=== PATIENT | female | born 1935 | race Caucasian/White ===

== ENCOUNTER 2016-09-10 21:46 | Emergency (ER) | payer MEDICARE ==
[2016-09-10] MEDS ORDERED: IBUPROFEN 600 MG TABLET ONE (23:09)
[2016-09-10] MEDS ORDERED: IBUPROFEN 600 MG TABLET PO ONE (23:09)
--- OUTSIDE RECORDS SUMMARY | 2016-09-10 23:17 | XMS REPORT | Continuity of Care Document ---
:1935 Author Organization [facility] ([facility]) Address [address] [place] [address] Phone [phone] Care Team Providers Name Role Phone Johanny Kleinforrest Primary Care Provider [phone] Source Comments This disclosure is being made pursuant to the Care Everywhere program, applicable federal and state laws, and may not contain all informaitonavailable regarding this patient.[facility] ([facility]) Active Allergies and Adverse Reactions No Known Allergies Current Medications Prescription Sig. Disp. Refills Start Date End Date Status LISINOPRIL PO Take by mouth. Active aspirin 81 mg tablet Take 81 mg by mouth Active daily. SIMVASTATIN PO Take by mouth Active daily. ZOLPIDEM TARTRATE Take by mouth at Active (ZOLPIDEM PO) bedtime. multivitamin tablet Take 1 Tab by mouth Active daily. glimepiride PO Take by mouth. Active DEXTRAN 70/HYPROMELLOSE Instill onto the Active (ARTIFICIAL TEARS OPHTH) eye as needed. metFORMIN PO Take by mouth. Active citalopram 20 mg tablet Take 20 mg by mouth Active at bedtime. losartan 50 mg tablet Take 50 mg by mouth Active daily. levothyroxine 25 mcg Take 25 mcg by Active tablet mouth every morning before breakfast. Active Problems Problem Noted Date Pseudophakia 08/12/2013 Type II or unspecified type diabetes mellitus without mention of 08/27/2009 complication, not stated as uncontrolled Glaucoma suspect 08/27/2009 Resolved Problems Problem Noted Date Resolved Date Nuclear sclerosis 08/27/2009 08/19/2013 Social History Tobacco Use Types Packs/Day Years Used Date Never Smoker Alcohol Use Drinks/Week oz/Week Comments Yes rare Last Filed Vital Signs Vital Sign Reading Time Taken Blood Pressure 147/65 08/20/2013 11:52 AM CDT Pulse 64 08/20/2013 11:46 AM CDT Temperature 36.2 C (97.2 F) 08/20/2013 10:32 AM CDT Respiratory Rate 18 08/20/2013 11:52 AM CDT Height 1.626 m (5' 4.02") 07/10/2013 2:30 PM [employer] Weight 76.8 kg (169 lb 5 oz) 08/20/2013 10:32 AM CDT Body Mass Index 29.05 08/20/2013 10:32 AM CDT Oxygen Saturation 98% 08/20/2013 11:52 AM CDT Plan of Care Health Maintenance Due Date Last Done Comments Hepatitis B Vaccine (1 of 3 - 1935 Primary Series) Tdap Vaccine 1944 DIABETIC: Cholesterol 1951 Diabetic: Hdl 1953 DIABETIC: Hemoglobin A1C 1951 Diabetic: Ldl 1953 DIABETIC: Microalbumin 1953 DIABETIC: Triglycerides 1953 Td Vaccine 1953 Colonoscopy 1983 Zoster Vaccine 1993 Osteoporosis Screening (DXA 1998 Bone Density) Pneumococcal Vaccine (1 of 2 1998 - PCV13) DIABETIC: Foot Exam 10/19/2010 DIABETIC: Retinal Eye Exam 12/28/2013 12/28/2012, Additional history exists 12/28/2012, 12/29/2011 Influenza Vaccine: Seasonal 12/07/2015 (#1) Results from Last 3 Months Not on file
--- NOTE | 2016-09-10 23:49 | ERNOTE ---
Medical Problem HPI - General Chief Complaint: General Assessment Time Seen by Provider: 09/10/16 22:50 Source: patient Exam Limitations: no limitations - Immun/Allergies/Home Medications Immunizations: IMMUNIZATION HX Immunizations Up to Date Yes History of Influenza Vaccine No Hx Pneumococcal Vaccination Yes Allergies/Adverse Reactions: Allergies No Known Allergies Allergy (Verified 09/10/16 22:45) Home Medications: HOME MEDICATIONS Citalopram HBr 06/28/15 [Last Taken Unknown] Glimepiride 06/28/15 [Last Taken Unknown] Levothyroxine Sodium 06/28/15 [Last Taken Unknown] Losartan Potassium 06/28/15 [Last Taken Unknown] Metformin HCl 06/28/15 [Last Taken Unknown] Phenazopyridine HCl [Pyridium] 200 mg PO TID #30 tablet 06/28/15 [Last Taken Unknown] Sulfamethoxazole/Trimethoprim [Bactrim Ds] 1 tab PO BID #20 tab 06/28/15 [Last Taken Unknown] Ibuprofen 600 mg PO TID PRN 7 Days 09/10/16 [Last Taken Unknown] Penicillin V Potassium [Pen-Vee K] 250 mg PO QID #40 tablet 09/10/16 [Last Taken Unknown] - History of Present History Narrative: pt complains of sore throat which began tonight earlier. Has taken no meds Review of Systems - Review of Systems Constitutional: Present: no symptoms reported EYE: Present: no symptoms reported ENT: Present: See HPI Respiratory: Present: no symptoms reported Cardiology: Present: no symptoms reported Gastrointestinal/Abdominal: Present: no symptoms reported Genitourinary: Present: no symptoms reported - Patient's Past Medical History Patient History - Medical: Diabetes Type 2 Patient History - Cardiac/Respiratory: Hypertension, Hyperlipidemia Patient History - Cancer: No Hx of Cancer Patient History - Surgical Procedures: Cataracts Patient History - Other: None - Family History Mother Family History - Medical: , Diabetes Type 2 Father Family History - Medical: Family History - Cardiac/Respiratory: CVA/Stroke - Social History Living Situations: alone Abuse History: No History of abuse Psych History: No pertinent hx Smoking Status: Never smoker Alcohol Use: none Drug Use: none - Immunizations Immunizations Up to Date: Yes Hx Pneumococcal Vaccination: Yes History of Influenza Vaccine: No Physical Exam - Physical Exam General Appearance: Present: wd/wn, alert, no apparent distress Ears, Nose, Throat: Present: normal ENT inspection, other - slight injection of the right tonsillar pillar noted but no exudates noted, mild right submandibular lymphadenopathy noted on exam and area is tender Neck: Present: normal inspection, lymphadenopathy (L) Respiratory: Present: no respiratory distress, normal breath sounds, no accessory muscle use Cardiovascular/Chest: Present: regular rate, rhythm, no murmur, normal peripheral pulses Gastrointestinal/Abdominal: Present: normal bowel sounds, nontender, nondistended, soft, no organomegaly Neurological Exam: Present: alert, oriented, normal mood/affect, no motor/ sensory deficits ED Progress - Results and Orders Patient's Lab Results:: I have reviewed the patient's lab results. - Vital Signs Patient's Vital Signs:: I have reviewed the patient's vital signs. Vital Signs: Vital Signs 09/10/16 22:38 Temperature 37.9 C H Pulse Rate 80 Respiratory 16 Rate Blood Pressure 188/88 O2 Sat by Pulse 100 Oximetry - Progress/Reassessment Chief Complaint: General Assessment Departure - Departure Clinical Impression: Pharyngitis Qualifiers: Pharyngitis/tonsillitis etiology: unspecified etiology Qualified Code(s): J02.9 - Acute pharyngitis, unspecified Disposition: Home self-care Condition: Good Instructions: Dysphagia Referrals: Debo Klein MD [Primary Care Provider] - Prescriptions: Ibuprofen 600 mg PO TID PRN 7 Days PRN Reason: Pain Penicillin V Potassium [Pen-Vee K] 250 mg PO QID #40 tablet
[2016-09-10 23:55] VITALS: BP 178/84
== END 2016-09-10 23:54 | disposition home or self-care (01) ==
LOC: ER 21:46
DX: J02.9 Acute pharyngitis, unspecified (principal)

== ENCOUNTER 2017-03-19 08:53 | Emergency (ER) | payer MEDICARE ==
[2017-03-19 09:01] VITALS: BP 144/71
[2017-03-19 09:13] LABS: Urine Bilirubin Negative (NEGATIVE); Urine Blood 250 /ul (NEGATIVE); Urine Ketone 5 mg/dL (NEGATIVE); Urine Protein 100 mg/dL (NEGATIVE); Urine Specific Gravity 1.025 SP.GR. (1.005-1.010); Urine Urobilinogen Normal (NORMAL); Urine pH 5.5 pH (5.0-7.0)
[2017-03-19 09:25] LABS: Urine Appearance Cloudy; Urine Bacteria 2+; Urine Color Yellow; Urine Nitrite Positive (NEGATIVE); Urine RBC >50 /hpf (0-5); Urine WBC >50 /hpf (0-5)
--- NOTE | 2017-03-19 09:27 | ERNOTE ---
ER Female HPI Stated Complaint: BLADDER INFECTION Presenting Symptoms: dysuria Time Seen by Provider: 03/19/17 09:05 Source: patient Exam Limitations: no limitations Immunizations: IMMUNIZATION HX Immunizations Up to Date Yes History of Influenza Vaccine No Hx Pneumococcal Vaccination Yes Allergies/Adverse Reactions: Allergies No Known Allergies Allergy (Verified 03/19/17 09:00) Home Medications: HOME MEDICATIONS Citalopram HBr 40 mg PO DAILY 06/28/15 [Last Taken Unknown] Glimepiride 2 mg PO DAILY 06/28/15 [Last Taken Unknown] Levothyroxine Sodium 25 mcg PO DAILY 06/28/15 [Last Taken Unknown] Losartan Potassium 50 mg PO TID 06/28/15 [Last Taken Unknown] Metformin HCl 850 mg PO TID 06/28/15 [Last Taken Unknown] ALPRAZolam [Xanax] 0.25 mg PO TID PRN 03/19/17 [Last Taken Unknown] Atorvastatin Calcium [Lipitor] 40 mg PO HS 03/19/17 [Last Taken Unknown] Benzonatate [Tessalon] 100 mg PO TID PRN 03/19/17 [Last Taken Unknown] Sulfamethoxazole/Trimethoprim [Bactrim Ds] 1 tab PO BID #20 tab 03/19/17 [Last Taken Unknown] rOPINIRole HCL [Requip] 0.5 mg PO DAILY 03/19/17 [Last Taken Unknown] - History of Present Illness Narrative: Patient presents with a sensation of bladder fullness as well as burning on urination. Onset of symptoms was 2-3 days ago and she describes it as moderate in severity. Timing: Present: getting worse Quality: Present: moderate, burning, fullness Onset Location: Present: suprapubic Radiation: Present: none Activities at Onset: Present: none Prior Abdominal Problems: Present: similar symptoms - in the past with a UTI Sexual [place] History: Present: not active Modifying Factors - (Worsens): Present: urinating Associated Symptoms: Present: denies symptoms Review of Systems - Review of Systems Constitutional: Present: See HPI EYE: Present: no symptoms reported ENT: Present: no symptoms reported Respiratory: Present: no symptoms reported Cardiology: Present: no symptoms reported Gastrointestinal/Abdominal: Present: no symptoms reported Genitourinary: Present: See HPI Musculoskeletal: Present: no symptoms reported Skin: Present: no symptoms reported Neurological: Present: no symptoms reported Endocrine: Present: no symptoms reported Hematologic/Lymphatic: Present: no symptoms reported Psych: Present: no symptoms reported - Patient's Past Medical History Patient History - Medical: Diabetes Type 2 Patient History - Cardiac/Respiratory: Hypertension, Hyperlipidemia Patient History - Cancer: No Hx of Cancer Patient History - Surgical Procedures: Cataracts Patient History - Other: None - Family History Mother Family History - Medical: , Diabetes Type 2 Father Family History - Medical: Family History - Cardiac/Respiratory: CVA/Stroke - Social History Living Situations: home Abuse History: No History of abuse Psych History: No pertinent hx Alcohol Use: none Drug Use: none - Immunizations Immunizations Up to Date: Yes Hx Pneumococcal Vaccination: Yes History of Influenza Vaccine: No Physical Exam - Physical Exam General Appearance: Present: wd/wn, alert, moderate distress Head Exam: Present: normal inspection Eye Exam: Normal inspection: bilateral, PERRL: bilateral Ears, Nose, Throat: Present: normal ENT inspection, H, normal pharynx Neck: Present: normal inspection, nontender Respiratory: Present: no respiratory distress, normal breath sounds, no accessory muscle use, chest nontender, lungs clear Cardiovascular/Chest: Present: regular rate, rhythm, no murmur, normal peripheral pulses Gastrointestinal/Abdominal: Present: normal bowel sounds, nondistended, soft, no organomegaly, tenderness - suprapubic Rectal Exam: Present: deferred Back Exam: Present: normal inspection, normal range of motion Extremity Exam: Present: normal inspection, non-tender, no edema, normal range of motion Neurological Exam: Present: alert, oriented, normal mood/affect Skin Exam: Present: normal color, warm/dry Lymphatic Exam: Present: no adenopathy ED Progress - Results and Orders Patient's Lab Results:: I have reviewed the patient's lab results. - Vital Signs Patient's Vital Signs:: I have reviewed the patient's vital signs. Vital Signs: Vital Signs 03/19/17 08:57 Temperature 36.4 C L Pulse Rate 87 Respiratory 16 Rate Blood Pressure 144/71 O2 Sat by Pulse 98 Oximetry - Progress/Reassessment Chief Complaint: Genitourinary Problem Plan - Plan Plan: Upon perusal of previous urine cultures patient has always been susceptible to Bactrim as an antibiotic agent. If she is diabetic and does appear to have some very mild renal insufficiency I will start with Bactrim rather than Cipro and have her follow-up with her family physician in the event that the Bactrim is not sufficient to clear up the UTI. She agrees to call her family physician for appointment Departure Clinical Impression: UTI (urinary tract infection) Qualifiers: Urinary tract infection type: acute cystitis Hematuria presence: with hematuria Qualified Code(s): N30.01 - Acute cystitis with hematuria - Departure Disposition: Home self-care Condition: Good Instructions: Urinary Tract Infection, Adult, [id number] Referrals: Debo Klein MD [Primary Care Provider] - Prescriptions: Sulfamethoxazole/Trimethoprim [Bactrim Ds] 1 tab PO BID #20 tab
== END 2017-03-19 09:41 | disposition home or self-care (01) ==
LOC: ER 08:53
DX: N30.01 Acute cystitis with hematuria (principal); E11.9 Type 2 diabetes mellitus without complications; I10 Essential (primary) hypertension; E78.5 Hyperlipidemia, unspecified

== ENCOUNTER 2018-02-22 15:38 | Observation (INO) ==
[2018-02-22] MEDS ORDERED: MECLIZINE HCL 25 MG TABLET PO ONE (16:17)
[2018-02-22] MEDS ORDERED: MECLIZINE HCL 25 MG TABLET ONE (16:23)
[2018-02-22 16:37] LABS: Hematocrit 35.3 % (37.0-47.0); Hemoglobin 11.7 gm/dL (12.5-16.0); Mean Cell Volume 90.3 fl (78-100); Mean Corpuscular Hemoglobin 29.9 pg (27-31); Mean Corpuscular Hgb Conc 33.1 g/dl (32-36); Mean Platelet Volume 10.5 fl (8-12.5); Neutrophil # 3.4 K/mm3 (1.3-6.0); Neutrophil % 65.5 % (42-75.0); Platelet Count 132 K/mm3 (150-450); Red Blood Count 3.91 M/mm3 (4.2-5.4); Red Cell Distribution Width 13.3 % (11.5-14.0); White Blood Count 5.2 K/mm3 (4.0-10.5)
[2018-02-22 16:50] LABS: Albumin * 3.6 gm/dl (3.4-5.0); BUN/Creatinine Ratio 23.1 (9.0-21.6); Bilirubin, Total 0.3 mg/dL (0.0-1.1); Carbon Dioxide 26.9 mmol/L (24-32.6); Potassium 4.9 mmol/L (3.4-4.6); Total Protein 6.6 gm/dL (6.2-8.2)
[2018-02-22 16:52] LABS: Urine Bilirubin Negative (NEGATIVE); Urine Blood Negative /ul (NEGATIVE); Urine Ketone Negative (NEGATIVE); Urine Nitrite Negative (NEGATIVE); Urine Protein Negative (NEGATIVE); Urine Urobilinogen Normal (NORMAL)
[2018-02-22 17:02] LABS: Urine Appearance Clear (CLEAR); Urine Bacteria None Seen; Urine Color Yellow; Urine RBC TRACE /hpf (0-5); Urine WBC TRACE /hpf (0-5)
[2018-02-22] MEDS ORDERED: hydrALAZINE HCL 20 MG/ML VIAL IV ONE (17:21)
[2018-02-22] MEDS ORDERED: hydrALAZINE HCL 20 MG/ML VIAL ONE (17:23)
[2018-02-22] MEDS ORDERED: LABETALOL HCL 5 MG/ML VIAL IV ONE ×2 (18:21→18:24)
--- NOTE | 2018-02-22 18:46 | ERNOTE ---
Dizziness ER Record Date of Service: 02/22/18 Presenting Symptoms: dizziness Time Seen by Provider: 02/22/18 16:01 Source: patient, family, RN notes reviewed, old records Exam Limitations: no limitations Immunizations: IMMUNIZATION HX Immunizations Up to Date Yes History of Influenza Vaccine No Hx Pneumococcal Vaccination Yes Allergies/Adverse Reactions: Allergies Allergy/AdvReac Type Severity Reaction Status Date / Time No Known Allergies Allergy Verified 02/22/18 15:50 Home Medications: HOME MEDICATIONS blood sugar diagnostic strips See Dose Instructions .ROUTE .MEDSUPPLY #100 ea 11/29/17 [Last Taken Unknown] blood-glucose meter See Dose Instructions .ROUTE .MEDSUPPLY #1 ea 11/29/17 [Last Taken Unknown] lancets See Dose Instructions .ROUTE .MEDSUPPLY #204 ea 11/29/17 [Last Taken Unknown] aspirin 81 mg chewable tablet 81 mg PO DAILY 12/06/17 [Last Taken Unknown] aspirin-acetaminophen (buffered) 250 mg-250 mg tablet tab PO .PRN tab 12/06/17 [Last Taken Unknown] atorvastatin 40 mg tablet 40 mg PO HS 12/06/17 [Last Taken Unknown] glimepiride 2 mg tablet 2 mg PO QAM 12/06/17 [Last Taken Unknown] hydrocodone 5 mg-acetaminophen 325 mg tablet 1 tab PO Q6H PRN 12/06/17 [Last Taken Unknown] levothyroxine 25 mcg capsule 25 mcg PO DAILY 12/06/17 [Last Taken Unknown] losartan 50 mg tablet 100 mg PO DAILY #60 tab 12/06/17 [Last Taken Unknown] ondansetron HCl 8 mg tablet 8 mg PO TID PRN 12/06/17 [Last Taken Unknown] sodium polystyrene sulfonate 15 gram/60 mL oral suspension 60 ml PO DAILY 12/06/17 [Last Taken Unknown] alprazolam 0.25 mg tablet 0.25 mg PO TID PRN #90 tab 01/23/18 [Last Taken Unknown] ropinirole 1 mg tablet 1 mg PO HS #90 tab 01/31/18 [Last Taken Unknown] citalopram 40 mg tablet 40 mg PO HS #90 tab 02/15/18 [Last Taken Unknown] - History of Present Illness Narrative: Jillian is a 82 year old female brought to the ED from home by her daughter for dizziness and nausea that began earlier today. Her blood pressure has also been elevated in the 180's systolic. The dizziness does not seem to be related to activity or rest. She saw her PCP approximately 3 weeks ago. Her blood pressure was elevated at that time. Her losartan was increased and has been controlling her blood pressure well. Date (Duration): 02/22/18 Timing and Duration: sudden onset Noted on awakening:: No Severity: max: moderate Severity: currently: mild Associated Symptoms: Present: hearing loss - Chronic, nausea, light headedness. Absent: ringing/roaring in ear, ear pain, vomiting, headache, weakness, numbness, sweating, sense of confusion Sense of movement: Present: spinning, vague Decreased ability to stand/walk:: Present: walks w/o assistance Usually:: Present: walks w/o assistance Prior Treament: Reports: recently seen. Denies: similar symptoms before Review of Systems - Review of Systems Constitutional: Present: malaise. Absent: recent illness, fever, chills EYE: Absent: eye pain, vision changes ENT: Present: See HPI. Absent: nose congestion, sore throat Respiratory: Absent: shortness of breath, cough Cardiology: Absent: chest pain, palpitations, syncope Gastrointestinal/Abdominal: Present: See HPI. Absent: diarrhea, abdominal pain Genitourinary: Present: no symptoms reported Musculoskeletal: Present: muscle pain, neck pain. Absent: joint pain Skin: Absent: rash, lesions Neurological: Present: dizziness/light-headedness. Absent: headache Endocrine: Present: no symptoms reported Hematologic/Lymphatic: Absent: easy bruising, easy bleeding Psych: Absent: anxiety, depressed Medical History (Last Reviewed 02/22/18 @ 18:44 by Yumiko Lopez NP) Sciatica (Chronic) Onset Date: ~01/28/13 Post traumatic stress disorder (Chronic) Onset Date: ~06/06/07 Migraine (Chronic) Onset Date: ~03/23/12 consider propranolol again which may help anxiety as well, though may try alpha yudelka first. propranolol and Elavil helped in past but caused weight gain. Insomnia (Chronic) Onset Date: ~07/07/11 Hypothyroidism (Chronic) Onset Date: ~10/25/12 mixed, low FT4 and TSH, consider endocrinology consult Hypertension (Chronic) Onset Date: ~07/07/11 Hyperlipidemia (Chronic) Onset Date: ~06/06/07 Hip pain (Chronic) Onset Date: ~01/28/13 Diabetes 1.5, managed as type 2 (Chronic) Onset Date: ~07/07/11 Depression (Chronic) Onset Date: ~07/07/11 Chronic renal failure (Chronic) Onset Date: ~01/28/13 Stage II Anxiety (Chronic) Onset Date: ~07/07/11 Anemia (Chronic) Onset Date: ~01/28/13 appears chronic in nature based on labs Surgical History: Surgical History (Last Reviewed 02/22/18 @ 18:44 by Yumiko Lopez NP) Cataract (Resolved) Onset Date: ~08/2013 bilateral Family History: Family History (Last Reviewed 02/22/18 @ 18:44 by Yumiko Lopez NP) Father , age 72 CVA (cerebral vascular accident) Mother , age 87 CHF (congestive heart failure) Social History: Preferred Language Syriac Smoking Status Never smoker Abuse History No History of abuse Psych History No pertinent hx Alcohol Use rarely Drug Use none (Last Updated 02/15/18 @ 07:26 by Debo Klein MD) No Social History Section defined Physical Exam - Physical Exam General Appearance: Present: wd/wn, alert, no apparent distress Head Exam: Present: normal inspection, no evidence of injury Eye Exam: Normal inspection: bilateral, PERRL: bilateral, EOMI: bilateral Ears, Nose, Throat: Present: hearing decreased - Wears hearing aids, normal pharynx. Absent: abnormal TM (R), abnormal TM (L), nasal congestion Neck: Present: supple, full range of motion, other - diffuse tenderness in posterior neck Respiratory: Present: no respiratory distress, normal breath sounds, no accessory muscle use, lungs clear Cardiovascular/Chest: Present: regular rate, rhythm, no murmur, normal peripheral pulses Gastrointestinal/Abdominal: Present: nontender, nondistended, soft Extremity Exam: Present: normal inspection, non-tender, normal range of motion, no edema Neurological Exam: Present: alert, oriented, normal mood/affect, no motor/sensory deficits, other - negative Bude/Brown/Stratford test Skin Exam: Present: normal color, warm/dry ED Progress - Results and Orders Patient's Lab Results:: I have reviewed the patient's lab results. - Vital Signs Patient's Vital Signs:: I have reviewed the patient's vital signs. Vital Signs: Vital Signs 02/22/18 15:38 02/22/18 16:09 02/22/18 16:27 Temperature 36.5 C Pulse Rate 72 68 75 Respiratory Rate 14 18 Blood Pressure 202/104 H 185/80 H O2 Sat by Pulse Oximetry 100 100 02/22/18 16:28 02/22/18 16:43 02/22/18 17:09 Temperature Pulse Rate 66 67 68 Respiratory Rate 17 15 10 L Blood Pressure 189/85 H 217/84 H 195/84 H O2 Sat by Pulse Oximetry 98 100 100 02/22/18 17:24 02/22/18 17:41 02/22/18 18:26 Temperature Pulse Rate 66 67 78 Respiratory Rate 15 Blood Pressure 204/94 H 191/86 H 192/84 H O2 Sat by Pulse Oximetry 96 - EKG EKG: NSR EKG read: Reviewed by me - CT/Ultrasound CT/Ultrasound Narrative: Head CT shows no acute intracranial abnormality - Progress/Reassessment Chief Complaint: Dizziness Progress:: Unchanged Plan - Plan Plan: The patient continues to report dizziness. After having a negative Bude/Brown/Stratford, she was given Meclizine without any improvement. Her blood pressure continued to be elevated in the 180-200 systolic range. She was then given hydralazine without any change, and then labetolol without any significant improvement in her blood pressure. She continues to have dizziness that seems to be worse when she reclines. She also reports nausea and an abnormal feeling in her head that she will not describe as a headache. She does complain of neck pain, but this has apparently been an ongoing issue. Dr. Brito was contacted and the patient will be admitted to observation status for further monitoring and control of her blood pressure. Departure Clinical Impression: Uncontrolled hypertension - Departure Disposition: Still a patient Condition: Fair Referrals: Debo Klein MD [Primary Care Provider] -
[2018-02-22] MEDS ORDERED: amLODIPine BESYLATE 5 MG TABLET ONE (19:59)
[2018-02-22] MEDS ORDERED: METOPROLOL SUCCINATE 50 MG TABLET.SA PO ONE (20:00)
[2018-02-22] MEDS ORDERED: amLODIPine BESYLATE 10 MG TABLET PO SCH (20:00)
[2018-02-22] MEDS ORDERED: METOPROLOL SUCCINATE 25 MG TABLET.SA PO SCH (20:00)
[2018-02-22] MEDS ORDERED: hydrALAZINE HCL 20 MG/ML VIAL IV PRN (20:02)
[2018-02-22] MEDS ORDERED: ALPRAZolam 0.25 MG TABLET PO PRN (21:42)
[2018-02-22] MEDS ORDERED: ACETAMINOPHEN 325 MG TABLET PO PRN (21:46)
[2018-02-22] MEDS ORDERED: CITALOPRAM HYDROBROMIDE 20 MG TABLET PO SCH (22:00)
[2018-02-22] MEDS ORDERED: ROSUVASTATIN CALCIUM 20 MG TABLET PO SCH (22:00)
[2018-02-22] MEDS ORDERED: ROSUVASTATIN CALCIUM 10 MG TABLET ONE (22:09)
[2018-02-22] MEDS ORDERED: rOPINIRole HCL 1 MG TABLET ONE (22:10)
[2018-02-22] MEDS: HYDROcodone/ACETAMINOPHEN 1 EACH TABLET PO PRN (22:14)
[2018-02-23 05:38] LABS: Anion Gap 7.2 mmol/L (6.8-13.8); BUN/Creatinine Ratio 26.1 (9.0-21.6); Carbon Dioxide 28.2 mmol/L (24-32.6); Estimated Creat Clear 32.6; Potassium 4.4 mmol/L (3.4-4.6)
[2018-02-23] MEDS: HYDROcodone/ACETAMINOPHEN 1 EACH TABLET PO PRN ×2 (06:34→12:50)
[2018-02-23] MEDS ORDERED: LEVOTHYROXINE SODIUM 25 MCG TABLET PO SCH (07:00)
[2018-02-23] MEDS ORDERED: PANTOPRAZOLE SODIUM 20 MG TABLET.DR PO SCH (07:00)
[2018-02-23] MEDS ORDERED: LOSARTAN POTASSIUM 50 MG TABLET PO SCH (09:00)
[2018-02-23] MEDS ORDERED: METOPROLOL SUCCINATE 25 MG TABLET.SA PO SCH (09:00)
[2018-02-23] MEDS ORDERED: ASPIRIN 81 MG TAB.CHEW PO SCH (09:00)
--- NOTE | 2018-02-23 11:35 | DS ---
(1) Hypertensive urgency Problem: Acute (2) Uncontrolled hypertension Problem: Acute Description of Stay: ADMISSION DATE: 02/22/2018 DISCHARGE DATE: 02/23/2018 ADMISSION HPI: The patient presented to the ED after experiencing dizziness and a queasy feeling in her stomach yesterday (02/21/2018) AM. She was found to be quite hypertensive in the ED so she was admitted overnight to outpatient observation for further monitoring. On admission, I started her on amlodipine 10mg PO X 1 on admission and then a second dose again this morning and then daily. This AM, the patient's blood pressure is improved and she denies any dizziness or nausea. She states she feels back to her baseline. HOSPITAL COURSE: The patient was admitted to outpatient observation for hypertension urgency and she was monitored overnight. She was started on amlodipine at admission which will be continued at discharge. She had a good response in BP with resolution of her presenting symptoms and she was discharged home in stable condition. She was instructed to follow-up within 1 week for a BP check. FOLLOW-UP APPOINTMENTS: -Follow-up with PCP within [address] Klein is unable to see the patient for follow-up next week, that is fine but please schedule the patient for a nurse visit with one of his nurses for a BP check and BMP. NEW OR CHANGED MEDICATIONS: -Amlodipine 10mg PO daily DISCONTINUED MEDICATIONS: -None RADIOLOGY REPORTS: Head CT without contrast on 02/22/2018: Findings: Exam shows symmetric appearing ventricular system and cortical sulci. There are scattered white matter low densities compatible with white matter microvascular ischemic disease. This includes remote lacunar infarcts in the basal ganglia regions. There is no positive mass effect or midline shift. There is no evidence for intracranial hemorrhage. There are no focal abnormal hypodensities to suggest vascular territory infarct. Follow-up with head MRI as clinically indicated. Visualized paranasal sinuses and mastoid air cells appear adequately aerated. IMPRESSION: NO ACUTE INTRACRANIAL PATHOLOGY IDENTIFIED. MILD AGE RELATED WHITE MATTER MICROVASCULAR ISCHEMIC CHANGES INCLUDING REMOTE APPEARING BASAL GANGLIA LACUNAR INFARCTS. Procedures Performed: none Results and Findings: Lab Pending Results 02/22/18 16:20: WBC 5.2, RBC 3.91 L, Hgb 11.7 L, Hct 35.3 L, MCV 90.3, MCH 29.9, MCHC 33.1, RDW 13.3, Plt Count 132 L, MPV 10.5, Immature Gran % (Auto) 0.40, Immature Gran # (Auto) 0.02, Neutrophils % 65.5, Lymphocytes % 25.2, Monocytes % 7.1, Eosinophils % 1.0, Basophils % 0.8, Nucleated RBC % 0.0, Neutrophils # 3.4, Lymphocytes # 1.31 L, Monocytes # 0.4, Eosinophils # 0.1, Absolute Basophils 0.0 02/22/18 16:20: Sodium 138, Plasma Sodium 138, Potassium 4.9 H, Chloride 107 H, Carbon Dioxide 26.9, Anion Gap 9.0, BUN 30 H, Creatinine 1.30, Est GFR (Non-Af Amer) 41 L D, BUN/Creatinine Ratio 23.1 H, Random Glucose 118 H, Calcium 9.0, Calcium Adj for Albumin 9.0, Total Bilirubin 0.3, AST 24, ALT 34, Alkaline Phosphatase 56, Total Protein 6.6, Albumin 3.6 02/22/18 16:47: Urine Color Yellow, Urine Appearance Clear, Urine pH 6.0, Ur Specific [place] 1.020, Urine Protein Negative, Urine Glucose (UA) Negative, Urine Ketones Negative, Urine Blood Negative, Urine Nitrate Negative, Urine Bilirubin Negative, Urine Urobilinogen Normal, Ur Leukocyte Esterase Negative, Urine RBC Trace, Urine WBC Trace H, Ur Epithelial Cells None seen, Urine Bacteria None seen, Urine Culture Comments No culture indicated 02/23/18 05:27: Sodium 139, Plasma Sodium 139, Potassium 4.4, Chloride 108 H, Carbon Dioxide 28.2, Anion Gap 7.2, BUN 29 H, Creatinine 1.11, Est GFR (Non-Af Amer) 50 L D, BUN/Creatinine Ratio 26.1 H, Random Glucose 106, Calcium 9.0 Discharge Location: Home Disposition: Home self-care Condition: Stable Discharge Activity: Activity as tolerated Discharge Diet: Low salt, Low fat/chol Referrals: Debo Klein MD [Primary Care Provider] - Problem Oriented Discharge Instructions to Patient/Family: Hypertension, [id number] Additional Patient Instructions (free text): -Please make TCM appointment unless longterm discharge. Thank you! Sakina @ ext:[phone]. -Follow-up with PCP within [address] Klein is unable to see the patient for follow-up next week, that is fine but please schedule the patient for a nurse visit with one of his nurses for a BP check and BMP. Follow up with Dr. Klein on 03/07/18 1:15pm. Prescriptions (Any new or edited meds): amLODIPine BESYLATE [Norvasc] 10 mg PO DAILY #30 tab Complete Home Medications List: Complete Home Medication List: blood sugar diagnostic strips See Dose Instructions .ROUTE .MEDSUPPLY #100 ea 11/29/17 blood-glucose meter See Dose Instructions .ROUTE .MEDSUPPLY #1 ea 11/29/17 lancets See Dose Instructions .ROUTE .MEDSUPPLY #204 ea 11/29/17 aspirin 81 mg chewable tablet 81 mg PO DAILY 12/06/17 losartan 50 mg tablet 100 mg PO DAILY #60 tab 12/06/17 alprazolam 0.25 mg tablet 0.25 mg PO TID PRN #90 tab 01/23/18 ropinirole 1 mg tablet 1 mg PO HS #90 tab 01/31/18 citalopram 40 mg tablet 40 mg PO HS #90 tab 02/15/18 amLODIPine BESYLATE [Norvasc] 10 mg PO DAILY #30 tab 02/23/18 levothyroxine 25 mcg capsule 25 mcg PO DAILY #180 cap 03/05/18 atorvastatin 40 mg tablet 40 mg PO HS #90 tab 03/07/18 hydrocodone 5 mg-acetaminophen 325 mg tablet 1 tab PO Q6H PRN #56 tab 03/07/18 oxycodone 10 mg tablet 10 mg PO BID #60 tab 03/07/18 glimepiride 2 mg tablet 2 mg PO DAILY tab 03/08/18
[2018-02-23 12:49] VITALS: BP 159/74
[2018-02-23] MEDS ORDERED: rOPINIRole HCL 1 MG TABLET PO SCH (21:00)
--- NOTE | 2018-03-11 19:48 | HP ---
Chief Complaint - Chief Complaint Date of Service: 02/23/18 Time of Service: 06:40 Chief Complaint: Dizziness, elevated BP History of Present Illness: The patient presented to the ED after experiencing dizziness and a queasy feeling in her stomach yesterday (02/21/2018) AM. She was found to be quite hypertensive in the ED so she was admitted overnight to outpatient observation for further monitoring. On admission, I started her on amlodipine 10mg PO X 1 on admission and then a second dose again this morning and then daily. This AM, the patient's blood pressure is improved and she denies any dizziness or nausea. She states she feels back to her baseline. Medical History (Last Reviewed 03/07/18 @ 13:19 by Judith Grossman RN) Sciatica (Chronic) Onset Date: ~01/28/13 Post traumatic stress disorder (Chronic) Onset Date: ~06/06/07 Migraine (Chronic) Onset Date: ~03/23/12 consider propranolol again which may help anxiety as well, though may try alpha yudelka first. propranolol and Elavil helped in past but caused weight gain. Insomnia (Chronic) Onset Date: ~07/07/11 Hypothyroidism (Chronic) Onset Date: ~10/25/12 mixed, low FT4 and TSH, consider endocrinology consult Hypertension (Chronic) Onset Date: ~07/07/11 Hyperlipidemia (Chronic) Onset Date: ~06/06/07 Hip pain (Chronic) Onset Date: ~01/28/13 Diabetes 1.5, managed as type 2 (Chronic) Onset Date: ~07/07/11 Depression (Chronic) Onset Date: ~07/07/11 Chronic renal failure (Chronic) Onset Date: ~01/28/13 Stage II Anxiety (Chronic) Onset Date: ~07/07/11 Anemia (Chronic) Onset Date: ~01/28/13 appears chronic in nature based on labs Degenerative disc disease Surgical History: Surgical History (Last Reviewed 03/07/18 @ 13:19 by Judith Grossman RN) Cataract (Resolved) Onset Date: ~08/2013 bilateral Family History: Family History (Last Reviewed 03/07/18 @ 13:19 by Judith Grossman RN) Father , age 72 CVA (cerebral vascular accident) Mother , age 87 CHF (congestive heart failure) Social History: Patient Lives/Resources Home Utilized Preferred Language Icelandic Do you have any hoahaoism or Yes: temple cultural preference? Smoking Status Never smoker Have you smoked in the past 12 No months Abuse History No History of abuse Psych History No pertinent hx Alcohol Use rarely Drug Use none (Last Reviewed 03/07/18 @ 13:19 by Judith Grossman RN) No Social History Section defined Review Of Systems (GEN) - Review of Systems Generalized/Overall Review: Present: No Symptoms Reported EENTM: Present: No Symptoms Reported Respiratory: Present: No Symptoms Reported Cardiac: Present: No Symptoms Reported Abdominal: Present: No Symptoms Reported Genitourinary: Present: No Symptoms Reported Musculoskeletal: Present: No Symptoms Reported Neurological: Present: No Symptoms Reported Skin: Present: No Symptoms Reported Endocrine: Present: No Symptoms Reported Misc: All systems neg except as marked Immunizations: IMMUNIZATION HX Immunizations Up to Date Yes History of Influenza Vaccine No Hx Pneumococcal Vaccination Yes Allergies/Adverse Reactions: Allergies Allergy/AdvReac Type Severity Reaction Status Date / Time No Known Allergies Allergy Verified 03/07/18 13:30 Home Medications: HOME MEDICATIONS blood sugar diagnostic strips See Dose Instructions .ROUTE .MEDSUPPLY #100 ea 11/29/17 [Last Taken Unknown] blood-glucose meter See Dose Instructions .ROUTE .MEDSUPPLY #1 ea 11/29/17 [Last Taken Unknown] lancets See Dose Instructions .ROUTE .MEDSUPPLY #204 ea 11/29/17 [Last Taken Unknown] aspirin 81 mg chewable tablet 81 mg PO DAILY 12/06/17 [Last Taken Unknown] losartan 50 mg tablet 100 mg PO DAILY #60 tab 12/06/17 [Last Taken Unknown] alprazolam 0.25 mg tablet 0.25 mg PO TID PRN #90 tab 01/23/18 [Last Taken Unknown] ropinirole 1 mg tablet 1 mg PO HS #90 tab 01/31/18 [Last Taken Unknown] citalopram 40 mg tablet 40 mg PO HS #90 tab 02/15/18 [Last Taken Unknown] amLODIPine BESYLATE [Norvasc] 10 mg PO DAILY #30 tab 02/23/18 [Last Taken Unknown] levothyroxine 25 mcg capsule 25 mcg PO DAILY #180 cap 03/05/18 [Last Taken Unknown] atorvastatin 40 mg tablet 40 mg PO HS #90 tab 03/07/18 [Last Taken Unknown] hydrocodone 5 mg-acetaminophen 325 mg tablet 1 tab PO Q6H PRN #56 tab 03/07/18 [Last Taken Unknown] oxycodone 10 mg tablet 10 mg PO BID #60 tab 03/07/18 [Last Taken Unknown] glimepiride 2 mg tablet 2 mg PO DAILY tab 03/08/18 [Last Taken Unknown] Exam - Exam Vital Signs: Vital Signs - Last Taken Temp 36.6 C 02/23/18 12:46 Pulse 67 02/23/18 12:46 Resp 16 02/23/18 12:46 BP 159/74 H 02/23/18 12:46 Pulse Ox 99 02/23/18 12:46 Constitutional: Present: Alert, Oriented x3, Cooperative, No distress, Elderly ENT Exam: Present: hard of hearing - bilateral hearing aids Neck: Present: normal inspection Respiratory: Present: lungs clear, normal breath sounds, no respiratory distress, no accessory muscle use Cardiovascular/Chest: Present: regular rate, rhythm Abdomen: Present: soft, nontender, nondistended Extremity: Present: normal inspection Skin Exam: Present: normal color, warm/dry Neurologic: Present: no motor/sensory deficits, alert, normal mood/affect, oriented x 3 Appearance: Present: appropriate appearance, appropriate insight, neat Eye contact: Present: cooperative, good eye contact, normal speech Thoughts: Present: normal thought pattern, no apparent hallucination Diagnostic Studies: Laboratory Results WBC 5.2 K/mm3 (4.0-10.5) 02/22/18 16:20 RBC 3.91 M/mm3 (4.2-5.4) L 02/22/18 16:20 Hgb 11.7 gm/dL (12.5-16.0) L 02/22/18 16:20 Hct 35.3 % (37.0-47.0) L 02/22/18 16:20 MCV 90.3 fl (78-100) 02/22/18 16:20 MCH 29.9 pg (27-31) 02/22/18 16:20 MCHC 33.1 g/dl (32-36) 02/22/18 16:20 RDW 13.3 % (11.5-14.0) 02/22/18 16:20 Plt Count 132 K/mm3 (150-450) L 02/22/18 16:20 MPV 10.5 fl (8-12.5) 02/22/18 16:20 Immature Gran % (Auto) 0.40 % (0.001-0.429) 02/22/18 16:20 Immature Gran # (Auto) 0.02 K/mm3 (0.000-0.0310) 02/22/18 16:20 Neutrophils % 65.5 % (42-75.0) 02/22/18 16:20 Lymphocytes % 25.2 % (20-51) 02/22/18 16:20 Monocytes % 7.1 % (0.0-9) 02/22/18 16:20 Eosinophils % 1.0 % (0.0-3.0) 02/22/18 16:20 Basophils % 0.8 % (0.0-1.0) 02/22/18 16:20 Nucleated RBC % 0.0 k/mm3 (0-1) 02/22/18 16:20 Neutrophils # 3.4 K/mm3 (1.3-6.0) 02/22/18 16:20 Lymphocytes # 1.31 k/mm3 (1.5-3.5) L 02/22/18 16:20 Monocytes # 0.4 k/mm3 (0.0-1.0) 02/22/18 16:20 Eosinophils # 0.1 k/mm3 (0.0-0.7) 02/22/18 16:20 Absolute Basophils 0.0 k/mm3 (0.0-0.1) 02/22/18 16:20 Sodium 139 mmol/L (132-142) 02/23/18 05:27 Plasma Sodium 139 mmol/L (130-142) 02/23/18 05:27 Potassium 4.4 mmol/L (3.4-4.6) 02/23/18 05:27 Chloride 108 mmol/L (97-106) H 02/23/18 05:27 Carbon Dioxide 28.2 mmol/L (24-32.6) 02/23/18 05:27 Anion Gap 7.2 mmol/L (6.8-13.8) 02/23/18 05:27 BUN 29 mg/dL (3-23) H 02/23/18 05:27 Creatinine 1.11 mg/dL (0.4-1.4) 02/23/18 05:27 Est GFR (Non-Af Amer) 50 mL/min (60-130) L D 02/23/18 05:27 BUN/Creatinine Ratio 26.1 (9.0-21.6) H 02/23/18 05:27 Random Glucose 106 mg/dL (70-110) 02/23/18 05:27 Calcium 9.0 mg/dL (7.9-10.9) 02/23/18 05:27 Calcium Adj for Albumin 9.0 mg/dL (8.4-10.2) 02/22/18 16:20 Total Bilirubin 0.3 mg/dL (0.0-1.1) 02/22/18 16:20 AST 24 U/L (0-48) 02/22/18 16:20 ALT 34 U/L (19-67) 02/22/18 16:20 Alkaline Phosphatase 56 U/L (50-170) 02/22/18 16:20 Total Protein 6.6 gm/dL (6.2-8.2) 02/22/18 16:20 Albumin 3.6 gm/dl (3.4-5.0) 02/22/18 16:20 Urine Color Yellow 02/22/18 16:47 Urine Appearance Clear (CLEAR) 02/22/18 16:47 Urine pH 6.0 pH (5.0-7.0) 02/22/18 16:47 Ur Specific [place] 1.020 SP.GR. (1.005-1.010) 02/22/18 16:47 Urine Protein Negative mg/dL (NEGATIVE) 02/22/18 16:47 Urine Glucose (UA) Negative mg/dL (NEGATIVE) 02/22/18 16:47 Urine Ketones Negative mg/dL (NEGATIVE) 02/22/18 16:47 Urine Blood Negative /ul (NEGATIVE) 02/22/18 16:47 Urine Nitrate Negative (NEGATIVE) 02/22/18 16:47 Urine Bilirubin Negative mg/dl (NEGATIVE) 02/22/18 16:47 Urine Urobilinogen Normal EU/dl (NORMAL) 02/22/18 16:47 Ur Leukocyte Esterase Negative /ul (NEGATIVE) 02/22/18 16:47 Urine RBC Trace /hpf (0-5) 02/22/18 16:47 Urine WBC Trace /hpf (0-5) H 02/22/18 16:47 Ur Epithelial Cells None seen /hpf (0-5) 02/22/18 16:47 Urine Bacteria None seen (NONE) 02/22/18 16:47 Urine Culture Comments No culture indicated 02/22/18 16:47 Assessment/Plan - Narrative Narrative: Patient monitored overnight with no acute issues. She was started on amlodipine 10mg PO daily with good response in BP and resolution of patient symptoms. She will be discharged home on this dose later today. She will follow-up with her PCP within 1 week for a BP check and BMP. - Assessment/Plan (1) Hypertensive urgency Problem: Acute (2) Uncontrolled hypertension Problem: Acute
== END 2018-02-23 13:11 | disposition home or self-care (01) ==
LOC: ER 15:38 → MS 15:38
PROVIDERS: ADMIT Internal Medicine; ATTEND Internal Medicine
CPT/HCPCS: 36415; 70450; 80048; 80053; 81001; 85025; 93005; 96374; 96375; 99284; G0378